=== PATIENT | male | born 1975 | race African-American/Black ===

== ENCOUNTER 2016-09-30 01:09 | Emergency (ER) | payer OTHER ==
[~2016-09-30] VITALS: Ht 182.9 cm; Wt 81.0 kg
[~2016-09-30 01:09] MED LIST: ESCI10TA
[2016-09-30 05:15] VITALS: BP 122/69
[2016-09-30] MEDS: AZITHROMYCIN 500 MG TABLET PO ONE (05:15)
[2016-09-30] MEDS: LIDOCAINE HCL 1% 20ML VIAL (Pyxis) INJ INFIL ONE (05:15)
[2016-09-30] MEDS: CEFTRIAXONE SODIUM 250 MG/VIAL IM ONE (05:15)
[2016-09-30 05:29] LABS: CLARITY URINE CLOUDY (CLEAR); COLOR URINE YELLOW (YELLOW); GLUCOSE URINE NEGATIVE (NEGATIVE); KETONES URINE NEGATIVE (NEGATIVE); LEUKOCYTE ESTERASE URINE 2+ (NEGATIVE); NITRITE URINE NEGATIVE (NEGATIVE); OCCULT BLOOD URINE NEGATIVE (NEGATIVE); PH URINE 6.5 (4.5-8.0); PROTEIN URINE NEGATIVE (NEGATIVE); SPECIFIC GRAVITY URINE 1.025 (1.005-1.030)
== END 2016-09-30 07:05 | disposition home or self-care (01) ==
LOC: ER 03:54
DX: R36.9 Urethral discharge, unspecified (principal); N48.89 Other specified disorders of penis; F41.9 Anxiety disorder, unspecified; F17.200 Nicotine dependence, unspecified, uncomplicated; F12.10 Cannabis abuse, uncomplicated
CPT/HCPCS: 81001; 96372; 99283; 99284; J0696; J3490